=== PATIENT | male | born 1965 | race Asian ===

== ENCOUNTER 2020-06-30 13:42 | Emergency (ER) | payer BC, MEDICAID ==
[~2020-06-30] VITALS: Ht 170.2 cm; Wt 67.6 kg
[~2020-06-30 13:42] MED LIST: ACET325T26 PO; ALBU25PO2 INH; ASPI100P PO; AZIT1PAC9; AZIT250T PO; BENZ-17 PO; CARV6.252 PO; CEFD300C37 PO; CEFU500T PO; FURO40TA6 PO; GUAI237S4 PO; LEVO500T8 PO; LISI1POW PO; LISI5TAB7 PO; NAPR-685 PO; POTA20PA31 PO; PRED20TA PO; SIMV1POW PO; SPIR25TA PO
--- NOTE | 2020-06-30 14:55 | NUR ---
MED REQUESTED FROM PHARMACY.
[2020-06-30] MEDS ORDERED: SODIUM CHLORIDE FLUSH 10ML SYR IVF ONE (15:00)
[2020-06-30] MEDS ORDERED: BUPIVACAINE/PF-EPI 0.5% 1:200K INFIL ONE (15:00)
[2020-06-30 15:10] LABS: BASOPHILS % (AUTO) 1 % (0-1); EOSINOPHILS % (AUTO) 2 % (1-7); LYMPHOCYTES % (AUTO) 22 % (22-44); MEAN CORPUSCULAR HEMOGLOBIN 28.3 pg (27.5-34.5); MEAN CORPUSCULAR HGB CONC 32.3 g/dL (33.2-36.2); MEAN PLATELET VOLUME 8.2 fL (7.4-10.4); MONOCYTES % (AUTO) 9 % (2-9); NEUTROPHILS % (AUTO) 66 % (42-75); PLATELET COUNT 282 x10^3/uL (130-400); RED BLOOD COUNT 4.48 x10^6/uL (4.38-5.82); RED CELL DISTRIBUTION WIDTH 15.7 % (9.4-14.8)
[2020-06-30 15:11] LABS: MD NO
[2020-06-30 15:15] VITALS: BP 110/75
--- NOTE | 2020-06-30 15:16 | NUR ---
PIV PLACED BY [employer], LABS DRAWN AND SENT TO LAB. MED AT BEDSIDE FOR PROVIDER ADMIN, CONSENT SIGNED. PT RESTING COMFORTABLY ON [place]. MISAEL.
[2020-06-30 15:22] LABS: ALANINE AMINOTRANSFERASE 19 U/L (12-78); ALBUMIN 3.5 g/dL (3.4-5.0); ANION GAP 4 mmol/L (5-15); CALCIUM 8.6 mg/dL (8.5-10.1); CHLORIDE 111 mmol/L (98-107); CREATININE 1.04 mg/dL (0.7-1.3)
[2020-06-30 15:24] LABS: ALKALINE PHOSPHATASE 92 U/L (45-117); BILIRUBIN,TOTAL 0.4 mg/dL (0.2-1.0); TOTAL PROTEIN 7.5 g/dL (6.4-8.2)
--- NOTE | 2020-06-30 15:32 | NUR ---
PROVIDER AT BEDSIDE FOR ARTHROCENTESIS.
[2020-06-30] MEDS ORDERED: MORPHINE SULFATE 4 MG/ML, 1ML ONE (15:58)
[2020-06-30] MEDS ORDERED: ONDANSETRON 2MG/ML, 2ML ONE (15:58)
[2020-06-30] MEDS ORDERED: ONDANSETRON 2MG/ML, 2ML IVPush ONE (16:00)
[2020-06-30] MEDS ORDERED: MORPHINE SULFATE 4 MG/ML, 1ML IVPush PRN (16:00)
[2020-06-30 16:01] LABS: HCT (SEDRATE) 39.2 % (39.2-51.8)
--- NOTE | 2020-06-30 16:15 | NUR ---
ALL RESULTS ARE BACK AT THIS TIME. CHART UP FOR RECHECK.
== END 2020-06-30 17:21 | disposition home or self-care (01) ==
LOC: ED 16:27
DX: L03.116 Cellulitis of left lower limb (principal); I50.9 Heart failure, unspecified; F17.200 Nicotine dependence, unspecified, uncomplicated
CPT/HCPCS: 20610; 36415; 80053; 84550; 85025; 85651; 96374; 96375; 99284; J2270; J2405

== ENCOUNTER 2020-07-05 13:47 | Emergency (ER) | payer MEDICAID ==
[~2020-07-05] VITALS: Ht 170.2 cm; Wt 69.4 kg
[2020-07-05 13:58] VITALS: BP 138/87
[2020-07-05 15:00] LABS: BASOPHILS % (AUTO) 1 % (0-1); EOSINOPHILS % (AUTO) 2 % (1-7); LYMPHOCYTES % (AUTO) 17 % (22-44); MEAN CORPUSCULAR HEMOGLOBIN 28.7 pg (27.5-34.5); MEAN CORPUSCULAR HGB CONC 32.9 g/dL (33.2-36.2); MEAN PLATELET VOLUME 7.9 fL (7.4-10.4); MONOCYTES % (AUTO) 9 % (2-9); NEUTROPHILS % (AUTO) 71 % (42-75); PLATELET COUNT 281 x10^3/uL (130-400); RED BLOOD COUNT 4.51 x10^6/uL (4.38-5.82); RED CELL DISTRIBUTION WIDTH 15.7 % (9.4-14.8)
[2020-07-05 15:05] LABS: MD NO
[2020-07-05 15:10] LABS: ALANINE AMINOTRANSFERASE 19 U/L (12-78); ALBUMIN 3.1 g/dL (3.4-5.0); ANION GAP 6 mmol/L (5-15); CALCIUM 8.9 mg/dL (8.5-10.1); CHLORIDE 105 mmol/L (98-107); CREATININE 1.31 mg/dL (0.7-1.3)
[2020-07-05 15:14] LABS: ALKALINE PHOSPHATASE 109 U/L (45-117); BILIRUBIN,TOTAL 0.7 mg/dL (0.2-1.0); TOTAL PROTEIN 7.2 g/dL (6.4-8.2); TROPONIN I 0.031 ng/mL (0.000-0.045)
--- NOTE | 2020-07-05 19:10 | NUR ---
NIL X 1
--- NOTE | 2020-07-05 19:55 | NUR ---
NIL X 2
--- NOTE | 2020-07-05 20:15 | NUR ---
NILX 3
== END 2020-07-05 20:17 | disposition home or self-care (01) ==
LOC: ED 16:48
DX: R06.00 Dyspnea, unspecified (principal); I50.9 Heart failure, unspecified; R07.9 Chest pain, unspecified; R00.0 Tachycardia, unspecified
CPT/HCPCS: 36415; 71045; 80053; 83880; 84484; 85025; 93005; 99285

== ENCOUNTER 2020-08-07 20:22 | Inpatient (IN) | payer MEDICAID ==
[~2020-08-07] VITALS: Ht 170.2 cm; Wt 64.5 kg
[2020-08-07 21:53] LABS: BASOPHILS % (AUTO) 1 % (0-1); EOSINOPHILS % (AUTO) 1 % (1-7); LYMPHOCYTES % (AUTO) 28 % (22-44); MEAN CORPUSCULAR HEMOGLOBIN 29.1 pg (27.5-34.5); MEAN CORPUSCULAR HGB CONC 32.8 g/dL (33.2-36.2); MEAN PLATELET VOLUME 7.8 fL (7.4-10.4); MONOCYTES % (AUTO) 10 % (2-9); NEUTROPHILS % (AUTO) 61 % (42-75); PLATELET COUNT 265 x10^3/uL (130-400); RED BLOOD COUNT 4.53 x10^6/uL (4.38-5.82)
[2020-08-07 21:55] LABS: MD NO
[2020-08-07 22:01] LABS: ALANINE AMINOTRANSFERASE 64 U/L (12-78); ALBUMIN 2.9 g/dL (3.4-5.0); ANION GAP 2 mmol/L (5-15); CALCIUM 8.9 mg/dL (8.5-10.1); CHLORIDE 110 mmol/L (98-107); CREATININE 1.44 mg/dL (0.7-1.3)
[2020-08-07 22:05] LABS: ALKALINE PHOSPHATASE 102 U/L (45-117); BILIRUBIN,TOTAL 0.6 mg/dL (0.2-1.0); TOTAL PROTEIN 6.9 g/dL (6.4-8.2); TROPONIN I 0.032 ng/mL (0.000-0.045)
[2020-08-07] MEDS ORDERED: SODIUM CHLORIDE 0.9%, 500ML IVBOLUS ONE (22:30)
--- NOTE | 2020-08-07 22:43 | NUR ---
PT BECAME UPSET WHEN I TRIED TO PLACE, IN RT A/C 20G HE SAID I HURT HIM PULLED AWAY FROM NEEDLE AND HUB WAS UNABLE TO START IV...
--- NOTE | 2020-08-08 | NUR ---
trial ambulation, patient became short of breath right away, oxygen sats 84 % RA. placed back to [facility] and re-hooked to monitor.
--- NOTE | 2020-08-08 00:07 | NUR ---
IV placed. lasix given. patient updated for plan of care.
[2020-08-08] MEDS ORDERED: FUROSEMIDE 40 MG/4 ML ONE (00:11)
[2020-08-08] MEDS ORDERED: FUROSEMIDE 40 MG/4 ML IV ONE (00:30)
--- NOTE | 2020-08-08 01:30 | NUR ---
patient urinated 1200 ml.
--- NOTE | 2020-08-08 01:56 | NUR ---
patient placed on hospital bed and kept comfortable.
[2020-08-08] MEDS ORDERED: ASPI81TA45 PO (02:59)
[2020-08-08] MEDS ORDERED: METF500T17 PO (02:59)
[2020-08-08] MEDS ORDERED: DIGO125T85 PO (02:59)
[2020-08-08] MEDS ORDERED: ATOR10TA9 PO (02:59)
[2020-08-08] MEDS ORDERED: INDO50CA15 PO (02:59)
[2020-08-08] MEDS ORDERED: ALLO300T PO (02:59)
--- NOTE | 2020-08-08 03:08 | NUR ---
medication reconcilliation updated. ~ 300 ml urine output noted.
--- NOTE | 2020-08-08 03:15 | NUR ---
Dr. Traore at bedside.
[2020-08-08] MEDS ORDERED: ONDANSETRON 2MG/ML, 2ML IVPush PRN (03:30)
[2020-08-08] MEDS ORDERED: LABETALOL 5MG/ML, 20ML IVPush PRN (03:30)
[2020-08-08] MEDS ORDERED: ACETAMINOPHEN 325 MG TABLET PO PRN (03:30)
--- NOTE | 2020-08-08 03:51 | NUR ---
urine output 700cc
[2020-08-08] MEDS ORDERED: PHARMACY MAY ADJ FOR RENAL FX MC PRN (04:00)
[2020-08-08] MEDS: HEPARIN 5,000 UNITS/ML, 1ML SQ SCH ×3 (04:24→20:03)
--- NOTE | 2020-08-08 04:30 | NUR ---
patient sleeping. no complaints made.
[2020-08-08 05:25] LABS: ANION GAP 4 mmol/L (5-15); CHLORIDE 109 mmol/L (98-107); CREATININE 1.19 mg/dL (0.7-1.3)
--- NOTE | 2020-08-08 05:30 | NUR ---
patient still sleeping. respiration unlabored.
[2020-08-08] MEDS: INSULIN LISPRO 100 UNITS/ML, PEN SQ-INSULIN SCH ×4 (07:00→20:03)
[2020-08-08] MEDS ORDERED: ASPIRIN 81 MG TABLET EC ONE (07:32)
[2020-08-08] MEDS ORDERED: FUROSEMIDE 20 MG/2 ML ONE (07:32)
[2020-08-08] MEDS ORDERED: CARVEDILOL 3.125 MG TABLET ONE (07:32)
--- NOTE | 2020-08-08 07:40 | NUR ---
FIRST ATTEMPT TO CALL REPORT.
[2020-08-08] MEDS: FUROSEMIDE 20 MG/2 ML IV SCH ×2 (07:47→16:35)
[2020-08-08 08:04] VITALS: BP 122/87
[2020-08-08] MEDS: ASPIRIN 81 MG TABLET EC PO SCH (09:52)
[2020-08-08] MEDS: CARVEDILOL 3.125 MG TABLET PO SCH ×2 (09:52→20:03)
[2020-08-08 12:17] VITALS: BP 114/82
[2020-08-08] MEDS ORDERED: BACLOFEN 10 MG TABLET PO PRN (15:00)
[2020-08-08 18:54] VITALS: BP 121/84
[2020-08-08] MEDS: ATORVASTATIN 10 MG TABLET PO SCH (20:03)
[2020-08-09 02:06] VITALS: BP 120/87
[2020-08-09] MEDS: HEPARIN 5,000 UNITS/ML, 1ML SQ SCH ×3 (03:06→20:35)
[2020-08-09 05:34] LABS: ANION GAP 6 mmol/L (5-15); CALCIUM 8.9 mg/dL (8.5-10.1); CHLORIDE 106 mmol/L (98-107)
[2020-08-09 05:35] LABS: BASOPHILS % (AUTO) 1 % (0-1); EOSINOPHILS % (AUTO) 1 % (1-7); LYMPHOCYTES % (AUTO) 24 % (22-44); MEAN CORPUSCULAR HGB CONC 32.9 g/dL (33.2-36.2); MEAN PLATELET VOLUME 8.1 fL (7.4-10.4); MONOCYTES % (AUTO) 9 % (2-9); NEUTROPHILS % (AUTO) 65 % (42-75); PLATELET COUNT 309 x10^3/uL (130-400); RED BLOOD COUNT 4.85 x10^6/uL (4.38-5.82); RED CELL DISTRIBUTION WIDTH 16.2 % (9.4-14.8)
[2020-08-09 05:37] LABS: CREATININE 1.31 mg/dL (0.7-1.3)
[2020-08-09 05:52] LABS: MD NO
[2020-08-09] MEDS: INSULIN LISPRO 100 UNITS/ML, PEN SQ-INSULIN SCH ×4 (07:29→20:34)
[2020-08-09 07:42] VITALS: BP 116/93
[2020-08-09] MEDS: FUROSEMIDE 20 MG/2 ML IV SCH ×2 (07:46→16:09)
[2020-08-09] MEDS: CARVEDILOL 3.125 MG TABLET PO SCH ×2 (07:46→20:35)
[2020-08-09] MEDS: ASPIRIN 81 MG TABLET EC PO SCH (07:46)
[2020-08-09 13:57] VITALS: BP 118/78
[2020-08-09 19:19] VITALS: BP 118/84
[2020-08-09] MEDS: ATORVASTATIN 10 MG TABLET PO SCH (20:35)
[2020-08-10 00:30] VITALS: BP 125/85
[2020-08-10] MEDS: HEPARIN 5,000 UNITS/ML, 1ML SQ SCH ×2 (03:32→10:37)
[2020-08-10 06:15] LABS: BASOPHILS % (AUTO) 2 % (0-1); EOSINOPHILS % (AUTO) 1 % (1-7); LYMPHOCYTES % (AUTO) 26 % (22-44); MEAN CORPUSCULAR HEMOGLOBIN 29.2 pg (27.5-34.5); MEAN CORPUSCULAR HGB CONC 32.9 g/dL (33.2-36.2); MEAN PLATELET VOLUME 7.9 fL (7.4-10.4); MONOCYTES % (AUTO) 10 % (2-9); NEUTROPHILS % (AUTO) 61 % (42-75); PLATELET COUNT 336 x10^3/uL (130-400); RED CELL DISTRIBUTION WIDTH 16.4 % (9.4-14.8)
[2020-08-10 06:19] LABS: MD NO
[2020-08-10 08:03] VITALS: BP 128/93
[2020-08-10] MEDS: INSULIN LISPRO 100 UNITS/ML, PEN SQ-INSULIN SCH ×2 (08:03→11:49)
[2020-08-10 08:40] LABS: ANION GAP 9 mmol/L (5-15); CALCIUM 9.6 mg/dL (8.5-10.1); CHLORIDE 106 mmol/L (98-107); CREATININE 1.71 mg/dL (0.7-1.3)
[2020-08-10] MEDS: CARVEDILOL 3.125 MG TABLET PO SCH (10:37)
[2020-08-10] MEDS: FUROSEMIDE 20 MG/2 ML IV SCH (10:37)
[2020-08-10] MEDS: ASPIRIN 81 MG TABLET EC PO SCH (10:37)
[2020-08-10] MEDS ORDERED: SPIR25TA5 PO (10:59)
== END 2020-08-10 14:00 | disposition home or self-care (01) | DRG 291 ==
LOC: ED 23:39 → EDIP 08-08 00:16 → 4WST 08-08 08:00
PROVIDERS: ADMIT Family Medicine; ATTEND Family Medicine
DX: I11.0 Hypertensive heart disease with heart failure (principal); J96.01 Acute respiratory failure with hypoxia; N17.9 Acute kidney failure, unspecified; E11.9 Type 2 diabetes mellitus without complications; I50.43 Acute on chronic combined systolic (congestive) and diastolic (congestive) heart failure; I42.8 Other cardiomyopathies; E78.5 Hyperlipidemia, unspecified; F17.200 Nicotine dependence, unspecified, uncomplicated; Z20.828 Contact with and (suspected) exposure to other viral communicable diseases; I27.20 Pulmonary hypertension, unspecified; I48.0 Paroxysmal atrial fibrillation; M10.9 Gout, unspecified
CPT/HCPCS: 36415; 71045; 71046; 80048; 80053; 80162; 82962; 83036; 83735; 83880; 84132; 84484; 85025; 93005; 93306; G0378; J1644; J1940; J1815; U0003